=== PATIENT | male | born 1970 ===

== ENCOUNTER 2017-08-26 06:22 | Day surgery (SDC) | payer OTHER ==
[~2017-08-26 06:22] MED LIST: Buffered Lidocaine 0.9% SYRIN* 5 ML/SYR SYRINGE INTRADERM ONE; Dexamethasone IV* 4 MG/ML 1 ML (4 MG) IV SLOW PU ONE; Famotidine IV* 10 MG/ML 2 ML (20 mg) IV ONE
[2017-08-26] MEDS ORDERED: Dexamethasone IV* 4 MG/ML 1 ML (4 MG) ONE (06:50)
[2017-08-26] MEDS ORDERED: ceFAZolin 2 GM in 100 MLS NS (*) BAG IVPB ONE (06:50)
[2017-08-26] MEDS ORDERED: Buffered Lidocaine 0.9% SYRIN* 5 ML/SYR SYRINGE ONE (06:50)
[2017-08-26] MEDS ORDERED: Famotidine IV* 10 MG/ML 2 ML (20 mg) ONE (06:50)
[2017-08-26] MEDS ORDERED: Propofol* 10 MG/ML 20 ML BTL IV PUSH ONE (07:01)
[2017-08-26] MEDS ORDERED: fentaNYL* 50 MCG/ML 5 ML VIAL (250 MCG VIAL) ONE (07:01)
[2017-08-26] MEDS ORDERED: Lidocaine 2% PF * 5 ML VIAL ONE (07:01)
[2017-08-26] MEDS ORDERED: Mivacurium Chloride* 20 MG/10 ML VIAL IV ONE (07:01)
[2017-08-26] MEDS ORDERED: Midazolam* 1 MG/ML 2 ML VIAL (2 MG) ONE (07:02)
[2017-08-26] MEDS ORDERED: Bupivacaine 0.5% SDV PF* 10-30ML VIAL ONE ×2 (07:11→10:09)
[2017-08-26] MEDS ORDERED: EPINEPHRINE 1 MG/ML 1 ML VIAL ONE (07:11)
[2017-08-26] MEDS ORDERED: KETAMINE HCL* 50 MG/ML 10 ML VIAL ONE (07:35)
[2017-08-26] MEDS ORDERED: Ketorolac INJ* 30 MG/ML 1 ML VIAL ONE (07:47)
[2017-08-26] MEDS ORDERED: fentaNYL* 50 MCG/ML 2 ML VIAL (100 MCG VIAL) ONE ×2 (08:39→12:04)
[2017-08-26] MEDS ORDERED: Ondansetron INJ* 2 MG/ML VIAL ONE (09:11)
[2017-08-26] MEDS ORDERED: PROCHLORPERAZINE INJ 5 MG/ML 2 ML VIAL IV PRN (09:20)
[2017-08-26] MEDS ORDERED: Naloxone* 0.4 MG/ML 1 ML VIAL IV PRN (09:20)
[2017-08-26] MEDS ORDERED: Morphine INJ* 2 MG/ML 1 ML CARPUJECT IV PRN (09:20)
[2017-08-26] MEDS ORDERED: oxyCODONE/Acetamin 5/325 MG* TAB PO PRN (09:20)
[2017-08-26] MEDS ORDERED: fentaNYL* 50 MCG/ML 2 ML VIAL (100 MCG VIAL) IV PRN (09:20)
[2017-08-26] MEDS ORDERED: methylPREDNISolone ACETATE 80* 80 MG/ML 1 ML VIAL ONE (09:56)
[2017-08-26] MEDS ORDERED: oxyCODONE/Acetamin 5/325 MG* TAB ONE (12:04)
[2017-08-26] MEDS ORDERED: EPHEDrine (Pressors)* 50 MG/ML VIAL ONE (12:11)
[2017-08-26 12:22] VITALS: BP 152/90
--- NOTE | 2017-08-30 04:34 | OP ---
DATE OF OPERATION: 08/26/17 - [facility] DATE OF : 72 SURGEON: Jose Dorsey MD TRANSMISSION SUPERVISOR: CLAUDIA Christianson. A physician music library assistant was required for the length of the procedure for positioning, assistance with instrumentation, and closure. ANESTHESIOLOGIST: Amelie Blanc MD ANESTHESIA: General anesthesia, local anesthesia with 0.5% Marcaine. Local anesthesia included 21 cc of Marcaine 0.5% without epinephrine in the subcutaneous tissue. 9 cc of the same Marcaine was placed along with 1 cc of Depo-Medrol into the glenohumeral joint. PRE-OP DIAGNOSES: 1. Right shoulder rotator cuff tendinitis, possible partial thickness rotator cuff tendon tear. 2. Right shoulder subacromial impingement and bursitis. 3. Right shoulder acromioclavicular joint arthritis. 4. Right shoulder possible biceps tendinitis. POST-OP DIAGNOSES: 1. Right shoulder capsulitis, severe, adhesive. 2. Right shoulder subacromial impingement and bursitis. 3. Right shoulder acromioclavicular joint arthritis. 4. Right shoulder proximal biceps tendinitis. 5. Right shoulder rotator cuff tendinitis, no high-grade partial thickness or full thickness tear appreciated. OPERATIVE PROCEDURE: 1. Right shoulder manipulation under anesthesia. 2. Right shoulder arthroscopic capsulotomy, capsular release, lysis of adhesions. 3. Right shoulder arthroscopic limited debridement including release of biceps tendon, debridement of rotator cuff interval, removal of significant subacromial bursitis tissue. 4. Right shoulder arthroscopic subacromial depression. 5. Right shoulder arthroscopic distal clavicle resection. 6. Cortisone injection, right glenohumeral joint. INDICATIONS: The patient is a 46-year-old man, left hand dominant, a prisoner from [place], who presented to me in clinic with pain in the right shoulder from 2015. There were no significant traumatic antecedents. The patient developed pain doing dips and chin-ups. The pain got progressively worse and the patient had significant nighttime pain. The patient described anterior shoulder pain. He tried physical therapy for 8 weeks without improvement. He had a subacromial cortisone injection. The patient mentioned to me in clinic that in the past, he had had some numbness and tingling in all fingers of right hand. An MRI from 2016 showed some signal change in the supraspinatus, subacromial bursitis, some fluid along the long head of the biceps tendon sheath. The patient's range of motion in clinic on 04/30/17 was 165 degrees of forward flexion, 80 degrees of external and 65 degrees of internal rotation. By his preoperative visit on 07/30/17, the patient had 110 degrees of forward flexion, 70 degrees of external and 30 degrees of internal rotation. The pain limited the patient's further range of motion in all directions and he did not want me to hurt him too much in clinic by pushing the limit at his ranges of motion. The patient had failed nonoperative management and opted for surgical management including planned subacromial depression, excision of distal clavicle , evaluation and treatment of biceps with possible open tenodesis, evaluation and treatment of rotator cuff. As the patient had had near full range of motion at this first clinic visit and as his MRI did not show significant capsulitis, I was not thinking this was an adhesive capsulitis-like picture. I discussed risks and potential complications of surgery including bleeding, infection, nerve or blood vessel injury, shoulder pain, stiffness, osteoarthritis, rotator cuff tendon retear. ANTIBIOTICS: 2 g Ancef IV. IV FLUIDS: 800 cc crystalloid. SPECIMEN: None. IMPLANTS: None. COMPLICATIONS: None. ESTIMATED BLOOD LOSS: Minimal. DESCRIPTION OF PROCEDURE: In preoperative holding, the patient signed a written consent. Operative extremity was marked in the preoperative holding. Anesthesiologist informed me that he preferred not to do scalene regional nerve block. This is because the patient has had a complaint of some numbness in his hand, radiating from the shoulder. Perhaps I should have protested more but anesthesiologist was worried about a so called second hit, additional trauma to the patient's right upper extremity nerves with the interscalene block. This is too bad as the shoulder arthroscopy is painful without regional nerve block. Therefore, it was decided we will just use general anesthesia. The patient was taken to the operating room, placed supine on the operating room table. The patient was sedated and intubated and the patient was transferred to the lateral decubitus position with right shoulder up. Longitudinal traction, 15 pounds. Appropriate forward flexion and abduction. Axillary roll, all bony prominences padded, beanbag hardened. ChloraPrep, draping, surgical time-out. I then attempted to enter the glenohumeral joint with a spinal needle from posterior, my standard technique. This took several minutes, longer than usual. I insufflated the glenohumeral joint with 25 cc of normal saline. I then attempted to enter the gleno-humeral joint with my trocar and cannula, metal. This was not easy. I again palpated all relevant anatomy. I made a new skin incision and again had some difficulty getting into the glenohumeral joint. I inserted my arthroscope and visualized that where I wanted to be, directly posterior to the glenohumeral joint. However, there was essentially no glenohumeral joint space. The glenoid was practically adherent to the humeral head with no space between two structures. I was just posterior to the joint space. I was able to visualize the labrum as well as the biceps tendon, which was severely tendonotic. As I cannot see through the glenohumeral joint, it was difficult to create an anterior glenohumeral joint portal. Eventually, I used a switching stick to create an anterior glenohumeral joint portal and I inserted an Arthrex plastic 5 -mm cannula from anterior. That cannula was pointing too medially. So, I then created a second anterior glenohumeral joint portal with a plastic cannula I preferred. I considered that the patient had developed some new changes in some most recent radiographs and advanced imaging. I decided that this was unlikely and inspected the visible articular cartilage and it seemed intact. Therefore, I decided that this lack of glenohumeral joint space was secondary to capsulitis. I pulled instruments from the shoulder. I took the shoulder out of longitudinal traction. I performed manipulation under anesthesia. I did encounter some resistance but was able to achieve approximately 170 degrees of forward flexion, 90 degrees of external rotation, and 70 degrees of internal rotation. There were no loud noises heard or palpated as is often the case. I reentered my arthroscope and discovered the glenohumeral joint to be greatly expanded, and completely different view of the glenohumeral joint. I inspected the proximal biceps and decided that given its significant level of tendinosis, it would be appropriate to cut it. I entered an arthroscope scissors from anterior and cut the biceps tendon. I decided that I would not tenodese it as previously planned since the patient's stiffness appeared to be one of the overriding pathologies in his shoulder, the capsulitis. Any additional fixation , risk enhancing postoperative stiffness, so I decided I would do a simple arthroscopic biceps tendon release. I entered an arthroscopic shaver and debrided some rotator interval tissue. At first subscapularis tendon had not been visible at all. I debrided a significant amount of rotator interval, soft tissue swelling. This allowed me to view the subscapularis tendon. No tear. I asked for a hook-tip VAPR and I used it to do a capsular release. I released anteriorly while looking from posterior and then I released posterior while looking from anterior. I was able to visualize circumferentially around the glenoid except for perhaps at 4:30 o'clock but I was able to do a near circumferential release with the hook-tip cautery. Used an arthroscopic shaver to debride some capsule. No articular cartilage lesions visualized and no rotator cuff tears visualized. I removed my instruments and fluid from the glenohumeral joint and entered the subacromial space from posterior and anterior. I created another anterior portal than I liked more for entering subacromial space. I established a lateral subacromial portal under direct visualization. There was significant bursitis in the subacromial space which I debrided with an arthroscopic shaver. No rotator cuff tendon tear visualized. I used an arthroscopic bur to debride the 8 mm of the undersurface of the anterior hook of the acromion. I then used an arthroscopic bur from anterior to debride 8 mm of the distal clavicle. Fluid and instruments were removed from subacromial space. Skin incisions closed with figure-of-8 and 12 stitches using nylon 4-0 suture. I injected into the glenohumeral joint 1 cc of Depo-Medrol, 80 mg/mL and 9 cc of Marcaine, 0.5% without epinephrine. I also injected into the subcutaneous tissues about all skin incisions 21 cc of Marcaine 0.5%. Xeroform, 4x4s, ABDs, foam tape. Sling. The patient was awakened and extubated and taken to the PACU. DISPOSITION: The patient was discharged back to his detention. The patient was instructed to receive Percocet as needed for pain control. He is to get out of the sling as quickly as possible and to get moving, his right shoulder and physical therapy to prevent his shoulder from becoming stiff again. The patient will follow up in 7 to 10 days in clinic with me. [id number]/[facility] #: [id number] [facility]
== END 2017-08-26 12:59 ==
LOC: OR 06:22
PROVIDERS: ATTEND Orthopaedic Surgery
DX: M75.01 Adhesive capsulitis of right shoulder (principal); M75.41 Impingement syndrome of right shoulder; M75.51 Bursitis of right shoulder; M19.011 Primary osteoarthritis, right shoulder; M75.21 Bicipital tendinitis, right shoulder; J45.909 Unspecified asthma, uncomplicated; Z87.891 Personal history of nicotine dependence; M54.2 Cervicalgia
CPT/HCPCS: A9270-GY; J1040; J1100; J1885; J2250; J2405; J2704; J3010